=== PATIENT | female | born 1990 | race African-American/Black ===

== ENCOUNTER 2017-03-06 06:09 | Emergency (ER) | payer SELFPAY ==
[2017-03-07 22:33] LABS: Chlamydia by PCR Not Detected (NotDetected); GC by PCR Not Detected (NotDetected)
== END 2017-03-06 07:00 | disposition home or self-care (01) ==
LOC: SCSER 06:09
DX: B37.3 Candidiasis of vulva and vagina (principal)
CPT/HCPCS: 87480; 87491; 87510; 87591; 87660; 99283